=== PATIENT | female | born 1990 | race American Indian/Alaskan Native ===

== ENCOUNTER 2019-04-06 14:06 | Emergency (ER) | payer SELFPAY ==
[2019-04-06 14:25] VITALS: BP 134/81
--- NOTE | 2019-04-06 14:31 | Emergency Department Report ---
ED General Adult HPI - General Chief complaint: Dental/Oral Stated complaint: MOUTH SWOLLEN/INFECTION Time Seen by Provider: 04/06/19 14:23 Source: patient Mode of arrival: Ambulatory Limitations: No Limitations - History of Present Illness Initial comments: 28 year old female presenst with no PMH cc of right sided mouth ulcer x 3 days. Patient states that she ahd busted the lesion in her mouth yesterday and since then some pus drained and now she is having pain and irritation to the area pt denies fever,chill,nausea, vomitiing or dental /gum swelling or pain she states pain localized to lesion in her mouth Location: mouth Radiation: non-radiation Severity scale (0 -10): 4 Quality: burning - Related Data Previous Rx's Medication Instructions Recorded Last Taken Type Amoxicillin/K Clav Tab [Augmentin 1 each PO Q12HR #20 tablet 04/06/19 Unknown Rx 500 MG TAB] Chlorhexidine Mouthwash [Peridex] 15 ml MM BID #1 bottle 04/06/19 Unknown Rx Allergies Allergy/AdvReac Type Severity Reaction Status Date / Time No Known Allergies Allergy Unverified 04/06/19 14:25 ED Review of Systems ROS: Stated complaint: MOUTH SWOLLEN/INFECTION Other details as noted in HPI Comment: All other systems reviewed and negative ED Past Medical Hx - Past Medical History Previous Medical History?: No - Surgical History Past Surgical History?: Yes Additional Surgical History: tonsillectomy - Social History Smoking Status: Never Smoker Substance Use Type: None - Medications Home Medications: Home Medications Medication Instructions Recorded Confirmed Last Taken Type Amoxicillin/K Clav Tab [Augmentin 1 each PO Q12HR #20 tablet 04/06/19 Unknown Rx 500 MG TAB] Chlorhexidine Mouthwash [Peridex] 15 ml MM BID #1 bottle 04/06/19 Unknown Rx ED Physical Exam - General Limitations: No Limitations General appearance: alert, in no apparent distress - Head Head exam: Present: atraumatic, normocephalic - Eye Eye exam: Present: normal appearance - ENT ENT exam: Present: mucous membranes moist - Expanded ENT Exam Expanded Mouth exam: Present: other (mild erythematous, yellow tinged pus ulcer on right inner bucal mucosa) Teeth exam: Present: normal inspection. Absent: dental caries, dental tenderness #, gingival enlargement Throat exam: Positive: normal inspection. Negative: tonsillar erythema, tonsillomegaly, tonsillar exudate - Neck Neck exam: Present: normal inspection, full ROM. Absent: tenderness, lymphadenopathy - Respiratory Respiratory exam: Present: normal lung sounds bilaterally. Absent: respiratory distress - Cardiovascular Cardiovascular Exam: Present: regular rate, normal rhythm. Absent: systolic murmur, diastolic murmur, rubs, gallop - GI/Abdominal GI/Abdominal exam: Present: soft, normal bowel sounds - Extremities Exam Extremities exam: Present: normal inspection - Back Exam Back exam: Present: normal inspection - Neurological Exam Neurological exam: Present: alert, oriented X3 - Psychiatric Psychiatric exam: Present: normal affect, normal mood - Skin Skin exam: Present: warm, dry, intact, normal color. Absent: rash ED Course Vital Signs 04/06/19 14:23 Temperature 98.4 F Pulse Rate 79 Respiratory 18 Rate Blood Pressure 134/81 O2 Sat by Pulse 99 Oximetry ED Medical Decision Making - Medical Decision Making 28 y o female presents with mouth ulcers x 2 days Pt is in no acute distress Discussed with patient trial of antibiotic mouth wash and oral Discussed follow up with the primary care physician Vital signs stable, Critical care attestation.: If time is entered above; I have spent that time in minutes in the direct care of this critically ill patient, excluding procedure time. 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
== END 2019-04-06 16:46 | disposition home or self-care (01) ==
LOC: ED 14:06
DX: K12.1 Other forms of stomatitis (principal)
CPT/HCPCS: 99282

== ENCOUNTER 2021-11-06 14:00 | Emergency (ER) | payer SELFPAY ==
[2021-11-06 19:36] LABS: Bacteria,Urine 1+ /HPF (Negative); Bilirubin,Urine NEG (Negative); Blood,Urine LG (Negative); Color,Urine Yellow (Yellow); Mucus,Urine FEW /HPF; Urobilinogen,Urine < 2.0 mg/dL (<2.0)
[2021-11-06 19:41] LABS: RBC,Urine > 182.0 /HPF (0.0-6.0)
[2021-11-06 19:43] LABS: HCG Qualitative,Urine Negative (Negative)
--- NOTE | 2021-11-06 19:56 | Emergency Department Report ---
ED General Adult HPI - General Chief complaint: Urogenital-Female Stated complaint: VAGINAL BLEED/ABDOMINAL PAIN Time Seen by Provider: 11/06/21 18:46 Source: patient Mode of arrival: Ambulatory Limitations: No Limitations - History of Present Illness Initial comments: 30-year-old -[place] female patient complains of abnormal vaginal bleeding x2 days. Patient states after intercourse yesterday, she began to notice vaginal bleeding that is as heavy as her normal menstrual flow. Patient states her menstrual cycle was 1 week ago and denies any history of irregular cycles. She states there is lower abdominal cramping, but denies any dysuria/hematuria/urinary frequency, vaginal discharge, or dyspareunia. Patient states she is not suspicious of an STI. Pain is mild at this time. No past medical history per patient. -: Sudden - Related Data Previous Rx's Medication Instructions Recorded Last Taken Type Amoxicillin/K Clav Tab [Augmentin 1 each PO Q12HR #20 tablet 04/06/19 Unknown Rx 500 MG TAB] Chlorhexidine Mouthwash [Peridex] 15 ml MM BID #1 bottle 04/06/19 Unknown Rx Ibuprofen [Motrin 800 MG tab] 800 mg PO Q8HR PRN #20 tablet 11/06/21 Unknown Rx Allergies Allergy/AdvReac Type Severity Reaction Status Date / Time No Known Allergies Allergy Verified 11/06/21 14:50 ED Review of Systems ROS: Stated complaint: VAGINAL BLEED/ABDOMINAL PAIN Other details as noted in HPI Constitutional: denies: chills, fever, malaise Respiratory: denies: shortness of breath Cardiovascular: denies: chest pain Gastrointestinal: as per HPI. denies: nausea, vomiting, diarrhea, constipation Genitourinary: as per HPI Musculoskeletal: denies: back pain Skin: denies: change in color Neurological: denies: headache, weakness Hematological/Lymphatic: denies: swollen glands ED Past Medical Hx - Past Medical History Previous Medical History?: No - Surgical History Additional Surgical History: tonsillectomy - Social History Smoking Status: Never Smoker Substance Use Type: None - Medications Home Medications: Home Medications Medication Instructions Recorded Confirmed Last Taken Type Amoxicillin/K Clav Tab [Augmentin 1 each PO Q12HR #20 tablet 04/06/19 Unknown Rx 500 MG TAB] Chlorhexidine Mouthwash [Peridex] 15 ml MM BID #1 bottle 04/06/19 Unknown Rx Ibuprofen [Motrin 800 MG tab] 800 mg PO Q8HR PRN #20 tablet 11/06/21 Unknown Rx ED Physical Exam - General Limitations: No Limitations General appearance: alert, in no apparent distress - Head Head exam: Present: atraumatic, normocephalic - Eye Eye exam: Present: normal appearance - Respiratory Respiratory exam: Present: normal lung sounds bilaterally. Absent: respiratory distress - Cardiovascular Cardiovascular Exam: Present: regular rate, normal rhythm - GI/Abdominal GI/Abdominal exam: Present: soft, tenderness (Mild suprapubic), normal bowel sounds. Absent: distended, guarding, rebound, rigid - Neurological Exam Neurological exam: Present: alert, oriented X3 - Psychiatric Psychiatric exam: Present: normal affect, normal mood - Skin Skin exam: Present: warm, dry, intact, normal color. Absent: rash ED Course Vital Signs 11/06/21 14:49 Temperature 97.3 F L Pulse Rate 78 Respiratory 15 Rate Blood Pressure 124/79 O2 Sat by Pulse 100 Oximetry ED Medical Decision Making - Radiology Data Radiology results: report reviewed ULTRASOUND PELVIS INDICATION: abnormal vaginal bleeding. TECHNIQUE: Transvaginal. Duplex Color Doppler used: Yes. COMPARISON: None available FINDINGS: Uterus: Present. Size: 6.5 x 3.6 x 3.7 cm. Endometrial complex: Normal measuring 3 mm. Mass lesions: None. Additional findings: None. Right Ovary -- Normal. Blood flow: Normal. Cyst or mass: 1.6 x 1.4 x 1.8 cm follicular cyst Left Ovary--not visualized Urinary Bladder: Normal. Free Fluid: None. Additional Findings: None. IMPRESSION: 1. No acute sonographic abnormality of the pelvis. 2. Left ovary not visualized - Medical Decision Making 30-year-old -[place] female patient complains of abnormal vaginal bleeding x2 days. Patient states after intercourse yesterday, she began to notice vaginal bleeding that is as heavy as her normal menstrual flow. Patient states her menstrual cycle was 1 week ago and denies any history of irregular cycles. She states there is lower abdominal cramping, but denies any d ysuria/hematuria/urinary frequency, vaginal discharge, or dyspareunia. Patient states she is not suspicious of an STI. Pain is mild at this time. No past medical history per patient. No acute abnormalities noted on ultrasound or UA. After further discussion, patient admits to taking a Plan B. Recommend she follows up with [facility] for abnormal uterine bleeding. No pain at this time and she is well-appearing. Vitals are normal. Patient stable for discharge home. Strict return precautions were discussed in detail with patient who verbalizes understand Critical care attestation.: If time is entered above; I have spent that time in minutes in the direct care of this critically ill patient, excluding procedure time. ED Disposition Clinical Impression: Abnormal uterine bleeding Disposition: HOME / SELF CARE / HOMELESS Is pt being admited?: No Condition: Stable Instructions: Abnormal Uterine Bleeding Prescriptions: Ibuprofen [Motrin 800 MG tab] 800 mg PO Q8HR PRN #20 tablet PRN Reason: pain/cramping Referrals: [facility] [Provider Group] - 3-5 Days [facility] [Provider Group] - 3-5 Days Forms: Work/School Release Form(ED)
--- NOTE | 2021-11-06 20:46 | Ultrasound Report ---
ULTRASOUND PELVIS INDICATION: abnormal vaginal bleeding. TECHNIQUE: Transvaginal. Duplex Color Doppler used: Yes. COMPARISON: None available FINDINGS: Uterus: Present. Size: 6.5 x 3.6 x 3.7 cm. Endometrial complex: Normal measuring 3 mm. Mass lesions: None. Additional findings: None. Right Ovary -- Normal. Blood flow: Normal. Cyst or mass: 1.6 x 1.4 x 1.8 cm follicular cyst Left Ovary--not visualized Urinary Bladder: Normal. Free Fluid: None. Additional Findings: None. IMPRESSION: 1. No acute sonographic abnormality of the pelvis. 2. Left ovary not visualized Signer Name: Zaid Lamb MD Signed: 11/06/2021 8:41 PM Workstation Name: [id number]
[2021-11-06] MEDS ORDERED: IBUPROFEN 800 MG TAB PO STA (21:06)
[2021-11-06 21:24] VITALS: BP 126/82
== END 2021-11-06 21:24 | disposition home or self-care (01) ==
LOC: ED 14:00
DX: N93.9 Abnormal uterine and vaginal bleeding, unspecified (principal); Z90.89 Acquired absence of other organs
CPT/HCPCS: 76830; 81001; 81025; 99284